=== PATIENT | female | born 1995 | race Caucasian/White ===

== ENCOUNTER → 2023-08-06 | Outpatient (CLI) | payer OTHER ==
--- NOTE | 2023-08-11 00:44 | CE ---
CARDIAC ELECTROPHYSIOLOGY REPORT STUDY PERFORMED: A 24-hour Holter monitor. SUMMARY: The patient was monitored for 24 hours. The baseline rhythm appeared to be sinus mechanism. The patient did have ventricular trigeminy. The patient did have sinus tachycardia as well with a heart rate above 150 beats per minute. No significant sinus pause or sinus arrest. No advanced AV block. No evidence of any atrial fibrillation or atrial flutter. CONCLUSION: 1. Sinus rhythm as a baseline mechanism. 2. Ventricular trigeminy noted. 3. No sustained or nonsustained ventricular tachycardia. 4. No significant sinus pause or sinus arrest. 5. No atrial fibrillation or atrial flutter noted. MMODL / IJN: [id number] /
== END | disposition home or self-care (01) ==
LOC: RADECHMAIN 07:29
PROVIDERS: ATTEND Internal Medicine
DX: I49.3 Ventricular premature depolarization (principal); R00.8 Other abnormalities of heart beat
CPT/HCPCS: 93225; 93226